=== PATIENT | female | born 1990 | race Caucasian/White ===

== ENCOUNTER → 2020-09-02 | Outpatient (CLI) | payer OTHER ==
[~2020-09-02] MED LIST: COLACE 100MG C100 MG PO; DOCUSATE SODIU100 MG PO; FEROSUL325 MG PO; HYDROCODON-ACE1 EAC4 PO; IBUPROFEN600 MG PO; IBUPROFEN800 MG PO; LORTAB 5-325 M1 EACH PO; NORCO 5-325 TA1 EACH PO; PRENATAL VITAM1 EAC8 PO; VENTOLIN/PROVE0.5 ML INH; ZOLOFT50 MG PO
[2020-09-02 14:08] LABS: RED BLOOD COUNT 3.78 M/UL (4.00-5.10); WHITE BLOOD COUNT 8.4 K/UL (4.5-11.0)
== END ==
LOC: GENOP 13:22
PROVIDERS: Obstetrics & Gynecology
DX: Z01.812 Encounter for preprocedural laboratory examination (principal); Z88.0 Allergy status to penicillin; Z88.1 Allergy status to other antibiotic agents
CPT/HCPCS: 36415; 81001; 85025

== ENCOUNTER 2020-09-03 05:29 | Inpatient (IN) | payer OTHER ==
[~2020-09-03] VITALS: Ht 160 cm; Wt 91.6 kg
[~2020-09-03 05:29] MED LIST changes: -FEROSUL325 MG PO; -HYDROCODON-ACE1 EAC4 PO; -IBUPROFEN800 MG PO
[2020-09-03] MEDS ORDERED: FEROSUL325 MG PO (06:10)
[2020-09-03] MEDS ORDERED: IBUPROFEN600 MG PO (16:26)
[2020-09-03] MEDS ORDERED: HYDROCODON-ACE1 EAC4 PO (16:26)
[2020-09-03] MEDS ORDERED: DOCUSATE SODIU100 MG PO (16:26)
[2020-09-04 04:47] LABS: HEMOGLOBIN 9.8 gm/dl (12.3-15.3)
[2020-09-04] MEDS ORDERED: IBUPROFEN800 MG PO (10:45)
== END 2020-09-04 15:46 | disposition home or self-care (01) | DRG 788 ==
LOC: OB 05:29
PROVIDERS: ADMIT Obstetrics & Gynecology
PROC: 4A1HX4Z Monitoring of Products of Conception, Cardiac Electrical Activity, External Approach (ICD-10-PCS; 2020-09-03)
PROC: 10D00Z1 Extraction of Products of Conception, Low, Open Approach (ICD-10-PCS; principal; 2020-09-03 07:30)
DX: O34.211 Maternal care for low transverse scar from previous cesarean delivery (principal); N85.8 Other specified noninflammatory disorders of uterus; Z3A.38 38 weeks gestation of pregnancy; Z37.0 Single live birth; Z20.822 Contact with and (suspected) exposure to COVID-19; Z88.1 Allergy status to other antibiotic agents; Z88.0 Allergy status to penicillin
CPT/HCPCS: 36415; 81001; 82800; 85014; 85018; 85025; C9113; J1580; J2250; J2274; J2405; J2590; J3010; J7120

== ENCOUNTER 2021-03-12 14:03 | Emergency (ER) | payer OTHER ==
[~2021-03-12 14:03] MED LIST changes: +FEROSUL325 MG PO; +HYDROCODON-ACE1 EAC4 PO; +IBUPROFEN800 MG PO
[2021-03-12 15:11] LABS: HEMOGLOBIN 13.7 gm/dl (12.3-15.3); RED BLOOD COUNT 4.75 M/UL (4.00-5.10); WHITE BLOOD COUNT 10.2 K/UL (4.5-11.0)
[2021-03-12 15:43] LABS: BUN/CREATININE RATIO 18 (0-10)
[2021-03-12] MEDS ORDERED: PROTONIX40 MG PO (16:28)
[2021-03-12] MEDS ORDERED: MYLANTA MAXIMU355 ML PO (16:28)
== END 2021-03-12 16:38 | disposition home or self-care (01) ==
LOC: ER1 14:03
PROVIDERS: Physician Assistant
DX: R07.89 Other chest pain (principal); R10.13 Epigastric pain; J45.909 Unspecified asthma, uncomplicated; Z88.0 Allergy status to penicillin; Z88.1 Allergy status to other antibiotic agents
CPT/HCPCS: 71045; 80053; 81001; 82550; 82553; 83690; 83874; 84484; 85025; 85379; 93005; 96374; 99285; C9113

== ENCOUNTER 2021-06-05 20:55 | Emergency (ER) | payer OTHER ==
[~2021-06-05 20:55] MED LIST changes: +MYLANTA MAXIMU355 ML PO; +PROTONIX40 MG PO
[2021-06-05 22:52] LABS: HEMOGLOBIN 13.3 gm/dl (12.3-15.3); RED BLOOD COUNT 4.52 M/UL (4.00-5.10); WHITE BLOOD COUNT 8.2 K/UL (4.5-11.0)
[2021-06-05 23:25] LABS: BUN/CREATININE RATIO 21 (0-10)
[2021-06-06] MEDS ORDERED: ZOFRAN ODT 4 MG4 MG PO (02:02)
[2021-06-06] MEDS ORDERED: MACROBID 100 M100 M1 PO (02:02)
[2021-06-06] MEDS ORDERED: BENTYL 20MG TAB20 MG PO (02:02)
== END 2021-06-06 02:20 | disposition home or self-care (01) ==
LOC: ER1 20:55
PROVIDERS: Physician Assistant
DX: N83.201 Unspecified ovarian cyst, right side (principal); R07.9 Chest pain, unspecified; I51.9 Heart disease, unspecified; K21.9 Gastro-esophageal reflux disease without esophagitis; Z88.0 Allergy status to penicillin; Z88.1 Allergy status to other antibiotic agents; Z20.822 Contact with and (suspected) exposure to COVID-19
CPT/HCPCS: 0240U; 80053; 81001; 82150; 82550; 82553; 83605; 83690; 83880; 84484; 84703; 85025; 85379; 85610; 85730; 87086; 93005; 99284; Q9967

== ENCOUNTER 2021-06-10 15:40 | Emergency (ER) | payer OTHER ==
[~2021-06-10 15:40] MED LIST changes: +BENTYL 20MG TAB20 MG PO; +MACROBID 100 M100 M1 PO; +ZOFRAN ODT 4 MG4 MG PO
[2021-06-10 16:16] LABS: HEMOGLOBIN 12.9 gm/dl (12.3-15.3); RED BLOOD COUNT 4.41 M/UL (4.00-5.10); WHITE BLOOD COUNT 8.6 K/UL (4.5-11.0)
[2021-06-10 16:41] LABS: BUN/CREATININE RATIO 13 (0-10)
== END 2021-06-10 20:20 | disposition home or self-care (01) ==
LOC: ER1 15:40
PROVIDERS: Nurse Practitioner
DX: R10.11 Right upper quadrant pain (principal); R07.89 Other chest pain; R19.7 Diarrhea, unspecified; J45.909 Unspecified asthma, uncomplicated
CPT/HCPCS: 71045; 80053; 81001; 82550; 82553; 83605; 83690; 83735; 84484; 84703; 85025; 93005; 99284; J2405

== ENCOUNTER → 2021-06-13 | Outpatient (CLI) | payer OTHER | LOC: EXRD 11:17 | DX: R10.11 Right upper quadrant pain (principal) | CPT/HCPCS: 76705 ==

== ENCOUNTER → 2021-07-26 | Outpatient (CLI) | payer OTHER | LOC: NM 08:00 | DX: R10.11 Right upper quadrant pain (principal) | CPT/HCPCS: 78226; A9537 ==

== ENCOUNTER → 2021-09-22 | Outpatient (CLI) | payer OTHER | LOC: NM 09-07 10:30 | DX: R10.11 Right upper quadrant pain (principal); R93.3 Abnormal findings on diagnostic imaging of other parts of digestive tract | CPT/HCPCS: 78264; A9541 ==

== ENCOUNTER → 2021-09-29 | Outpatient (CLI) | payer OTHER | LOC: RAD 07:41 | DX: R10.11 Right upper quadrant pain (principal) | CPT/HCPCS: 74250 ==